=== PATIENT | male | born 1975 | race Caucasian/White ===

== ENCOUNTER 2018-02-25 18:19 | Emergency (ER) | payer SELFPAY ==
[~2018-02-25] VITALS: Ht 165.1 cm; Wt 61.2 kg
[2018-02-25 18:51] VITALS: BP 132/70
[2018-02-25] MEDS ORDERED: HYDR453.3 TP (19:27)
--- NOTE | 2018-02-25 19:28 | PHYS DOC ---
Past Medical History Past Medical History: Bipolar, Depression Past Surgical History: No Surgical History Additional Information: 06/12 PPD Alcohol Use: None Drug Use: None Adult General Chief Complaint Chief Complaint: SKIN PROBLEM HPI HPI 42-year-old male presents to emergency room for evaluation of "bugs crawling around under my skin". Patient is convinced he has scabies or an insect infestation on and under his skin. He was at a motel in the past week. He states that everybody he is talked to and described his symptoms to have told him that sounds like scabies. Patient does not currently have any rash but states he can see the bugs moving under and on his skin. Review of Systems Review of Systems Constitutional: Denies fever or chills [] : Denies dysuria or hematuria [] Musculoskeletal: Denies back pain or joint pain [] I Neurologic: Denies headache, focal weakness or sensory changes [] Endocrine: Denies polyuria or polydipsia [] All other systems were reviewed and found to be within normal limits, except as documented in this note. Allergies Allergies Allergies Coded Allergies Type Severity Reaction Last Updated Verified No Known Drug Allergies 02/25/18 No Physical Exam Physical Exam Constitutional: Well developed, well nourished, no acute distress, non-toxic appearance. [] Skin: Warm, dry, no erythema, no rash, NO VISIBLE INSECTS OR RASH ON EXTREMITIES Back: No tenderness, no CVA tenderness. [] Extremities: No tenderness, no cyanosis, no clubbing, ROM intact, no edema. [] Neurologic: Alert and oriented X 3, normal motor function, normal sensory function, no focal deficits noted. [] Psychologic: Affect normal, judgement normal, mood normal. [] Current Patient Data Vital Signs Vital Signs Date Time Temp Pulse Resp B/P (MAP) Pulse Ox O2 Delivery O2 Flow Rate FiO2 02/25/18 18:51 98.6 78 16 132/70 (90) 98 Room Air 98.6 EKG EKG [] Radiology/Procedures Radiology/Procedures [] Course & Med Decision Making Course & Med Decision Making During my examination, patient is pulling his socks off and pointing to LINT on his heels stating that this is bugs, active worms that are crawling on his feet. I explained to patient that this is lint from his socks, there were no active insects on his extremities. He then put a sock back on and points to a piece of green grass stating that that was a bug or insect. I do not see any evidence of scabies infestation on the skin. This appears to be a psychiatric issue. I explained to patient that I do not see any scabies infestation that I could treat the pruritus that he is experiencing. We could treat the symptoms with hydrocortisone cream. Patient does not like this idea and demands that he has scabies or "some other kind of insect living on my skin". [] Dragon Disclaimer Dragon Disclaimer This electronic medical record was generated, in whole or in part, using a voice recognition dictation system. Departure Departure Impression: Primary Impression: Generalized pruritus Disposition: HOME, SELF-CARE Condition: STABLE Referrals: NO PCP (PCP) Patient Instructions: Pruritus Scripts Hydrocortisone (HYDROCORTISONE) 453.6 Gm Cream..g. 1 FRANCES TP PRN BID, #30 GM 0 Refills Prov: ROHIT AUSTIN APRN 02/25/18 ROHIT AUSTIN APRN Feb 25, 2018 19:28
== END 2018-02-25 19:56 | disposition home or self-care (01) ==
LOC: ER 18:19
DX: L29.9 Pruritus, unspecified (principal)
CPT/HCPCS: 99282

== ENCOUNTER 2018-11-01 23:01 | Emergency (ER) | payer SELFPAY ==
[~2018-11-01] VITALS: Ht 165.1 cm; Wt 63.5 kg
[~2018-11-01 23:01] MED LIST: HYDR453.3 TP
[2018-11-01 23:43] LABS: BILIRUBIN,URINE NEGATIVE (NEG); CLARITY,URINE CLOUDY; COLOR,URINE YELLOW; NITRITE,URINE POSITIVE (NEG); PROTEIN,URINE NEGATIVE (NEG-TRACE)
[2018-11-01] MEDS ORDERED: ONDANSETRON PF 4 MG/2 ML VIAL. IV ONE (23:45)
[2018-11-01] MEDS ORDERED: KETOROLAC 30 MG/ML VIAL. IV ONE (23:45)
[2018-11-01] MEDS ORDERED: IV NORMAL SALINE 1000ML BAG 1,000 ML IV ONE (23:45)
[2018-11-01 23:51] LABS: RBC,URINE OCC /HPF (0-2)
[2018-11-01 23:52] LABS: BACTERIA,URINE MODERATE /HPF (0-FEW); SQUAMOUS EPITHELIAL CELL,UR OCC /LPF; WBC,URINE TNTC /HPF (0-4)
[2018-11-02] MEDS ORDERED: metroNIDAZOLE 500 MG TABLET PO ONE (00:30)
[2018-11-02] MEDS ORDERED: AZITHROMYCIN 250 MG TABLET. PO ONE (00:30)
[2018-11-02] MEDS ORDERED: cefTRIAXone IV Push 1 GM VIAL. IVP ONE (00:30)
[2018-11-02 00:45] LABS: BASO % 1 % (0-3); EOS % 0 % (0-3); HEMATOCRIT 42.7 % (39.0-53.0); HEMOGLOBIN 13.9 g/dL (13.0-17.5); LYMPH # 1.1 x10^3/uL (1.0-4.8); LYMPH % 21 % (24-48); MEAN CORPUSCULAR HEMOGLOBIN 27 pg (25-35); MEAN CORPUSCULAR HGB CONC 33 g/dL (31-37); MEAN CORPUSCULAR VOLUME 83 fL (79-100); MONO # 0.9 x10^3/uL (0.0-1.1); MONO % 18 % (0-9); NEUT % 60 % (31-73); PLATELET COUNT 214 x10^3/uL (140-400); RED BLOOD COUNT 5.12 x10^6/uL (4.30-5.70); RED CELL DISTRIBUTION WIDTH 14.1 % (11.5-14.5)
--- NOTE | 2018-11-02 00:47 | RAD ---
CT abdomen and pelvis without contrast. HISTORY: Flank pain CT abdomen and pelvis was done without contrast. Lung bases are clear. There is no effusion. A liver lesion is not identified. There is no calcified gallstone. Spleen and adrenal glands are normal. There is no mass or hydronephrosis in the kidneys. There is a punctate calculus in the lower pole of the left kidney. Bowel pattern is normal. Appendix is normal. There is no adenopathy. There is increased stool in the colon. IMPRESSION: 1. Punctate calculus lower pole left kidney. 2. No ureteral calculus noted. 3. Normal appendix. 4. Increased stool in the colon. PQRS Compliance Statement: One or more of the following individualized dose reduction techniques were utilized for this examination: 1. Automated exposure control 2. Adjustment of the mA and/or kV according to patient size 3. Use of iterative reconstruction technique Electronically signed by: Valentin Harris MD (11/02/2018 12:44 AM) [facility]
[2018-11-02 00:50] LABS: CALCIUM 9.1 mg/dL (8.5-10.1); CREATININE 0.9 mg/dL (0.7-1.3); POTASSIUM 3.6 mmol/L (3.5-5.1)
[2018-11-02 00:55] LABS: ALBUMIN 3.3 g/dL (3.4-5.0); ALBUMIN/GLOBULIN RATIO 0.8 (1.0-1.7); TOTAL BILIRUBIN 0.4 mg/dL (0.2-1.0); TOTAL PROTEIN 7.3 g/dL (6.4-8.2)
--- NOTE | 2018-11-02 00:55 | PHYS DOC ---
Past Medical History Past Medical History: Bipolar, Depression, Other Additional Past Medical Histor: Hep C (ANDREW CARLOS APRN) Past Surgical History: No Surgical History (ANDREW CARLOS APRN) Alcohol Use: None Drug Use: Marijuana (ANDREW CARLOS APRN) Adult General Chief Complaint Chief Complaint: FLANK PAIN HPI HPI Patient is a 42 year old male with history of bipolar, depression, who presents to the ED today complaining of 7 out of 10 bilateral flank pain with dark urine that began today. Patient denies any nausea vomiting. He is complaining of subjective fevers. Denies any previous history of kidney stones. He is in the ED with a significant other who states she has had kidney problems and could've given them to patient. She also states she has HPV and maybe patient has HPV too. (ANDREW CARLOS APRN) Review of Systems Review of Systems Constitutional: Reports subjective fevers Eyes: Denies change in visual acuity, redness, or eye pain [] HENT: Denies nasal congestion or sore throat [] Respiratory: Denies cough or shortness of breath [] Cardiovascular: No additional information not addressed in HPI [] GI: Denies abdominal pain, nausea, vomiting, bloody stools or diarrhea [] : Denies dysuria or hematuria [] Musculoskeletal: Reports flank pain Integument: Denies rash or skin lesions [] Neurologic: Denies headache, focal weakness or sensory changes [] All other systems were reviewed and found to be within normal limits, except as documented in this note. (ANDREW CARLOS APRN) Current Medications Current Medications Current Medications Medications (Trade) Dose Ordered Sig/Allen Start Time Stop Time Status Last Admin Dose Admin Azithromycin (Zithromax) 1,000 mg 1X ONCE 11/02/18 00:30 11/02/18 00:31 DC 11/02/18 01:15 1,000 MG Ceftriaxone Sodium (Rocephin) 1 gm 1X ONCE 11/02/18 00:30 11/02/18 00:31 DC 11/02/18 01:14 1 GM Ketorolac Tromethamine (Toradol 30mg Vial) 30 mg 1X ONCE 11/01/18 23:45 11/01/18 23:46 DC 11/02/18 00:06 30 MG Metronidazole (Flagyl) 2,000 mg 1X ONCE 11/02/18 00:30 11/02/18 00:31 DC 11/02/18 01:15 2,000 MG Ondansetron HCl (Zofran) 4 mg 1X ONCE 11/01/18 23:45 11/01/18 23:46 DC 11/02/18 00:05 4 MG Sodium Chloride 1,000 ml @ 1,000 mls/hr 1X ONCE 11/01/18 23:45 11/02/18 00:44 DC 11/02/18 00:06 1,000 MLS/HR Tamsulosin HCl (Flomax) 0.4 mg 1X ONCE 11/02/18 01:15 11/02/18 01:16 DC 11/02/18 01:15 0.4 MG (BENIGNO SHANKS MD) Allergies Allergies Allergies Coded Allergies Type Severity Reaction Last Updated Verified No Known Drug Allergies 02/25/18 No (BENIGNO SHANKS MD) Physical Exam Physical Exam Constitutional: Well developed, well nourished, no acute distress, non-toxic appearance. [] HENT: Normocephalic, atraumatic, bilateral external ears normal, oropharynx moist, no oral exudates, nose normal. [] Eyes: PERRLA, EOMI, conjunctiva normal, no discharge. [] Neck: Normal range of motion, no tenderness, supple, no stridor. [] Cardiovascular:Heart rate regular rhythm, no murmur [] Lungs & Thorax: Bilateral breath sounds clear to auscultation [] Abdomen: Bowel sounds normal, soft, no tenderness, no masses, no pulsatile masses. [] Skin: Warm, dry, no erythema, no rash. [] Back: No tenderness, mild bilateral CVA tenderness. [] Extremities: No tenderness, no cyanosis, no clubbing, ROM intact, no edema. [] Neurologic: Alert and oriented X 3, normal motor function, normal sensory function, no focal deficits noted. [] Psychologic: Patient curled up in a ball. Flat affect, significant other rubbing his back and face, significant other appears very overbearing (MUTUNGA,ANDREW [employer]) Current Patient Data Vital Signs Vital Signs Date Time Temp Pulse Resp B/P (MAP) Pulse Ox O2 Delivery O2 Flow Rate FiO2 11/02/18 02:00 98.7 71 18 141/77 (98) 98 Room Air 98.7 (BENIGNO SHANKS MD) Lab Values Laboratory Tests Test 11/01/18 23:31 11/02/18 00:30 Urine Color Yellow Urine Clarity Cloudy Urine pH 6.0 Urine Specific [place] 1.015 Urine Protein Negative mg/dL (NEG-TRACE) Urine Glucose (UA) Negative mg/dL (NEG) Urine Ketones (Stick) 40 mg/dL (NEG) Urine Blood Small (NEG) Urine Nitrite Positive (NEG) Urine Bilirubin Negative (NEG) Urine Urobilinogen Dipstick 1.0 mg/dL (0.2 mg/dL) Urine Leukocyte Esterase Large (NEG) Urine RBC Occ /HPF (0-2) Urine WBC Tntc /HPF (0-4) Urine Squamous Epithelial Cells Occ /LPF Urine Bacteria Moderate /HPF (0-FEW) Urine Opiates Screen Neg (NEG) Urine Methadone Screen Neg (NEG) Urine Barbiturates Neg (NEG) Urine Phencyclidine Screen Neg (NEG) Urine Amphetamine/Methamphetamine Pos (NEG) Urine Benzodiazepines Screen Neg (NEG) Urine Cocaine Screen Neg (NEG) Urine Cannabinoids Screen Pos (NEG) Urine Ethyl Alcohol Neg (NEG) White Blood Count 5.0 x10^3/uL (4.0-11.0) Red Blood Count 5.12 x10^6/uL (4.30-5.70) Hemoglobin 13.9 g/dL (13.0-17.5) Hematocrit 42.7 % (39.0-53.0) Mean Corpuscular Volume 83 fL (79-100) Mean Corpuscular Hemoglobin 27 pg (25-35) Mean Corpuscular Hemoglobin Concent 33 g/dL (31-37) Red Cell Distribution Width 14.1 % (11.5-14.5) Platelet Count 214 x10^3/uL (140-400) Neutrophils (%) (Auto) 60 % (31-73) Lymphocytes (%) (Auto) 21 % (24-48) L Monocytes (%) (Auto) 18 % (0-9) H Eosinophils (%) (Auto) 0 % (0-3) Basophils (%) (Auto) 1 % (0-3) Neutrophils # (Auto) 3.0 x10^3uL (1.8-7.7) Lymphocytes # (Auto) 1.1 x10^3/uL (1.0-4.8) Monocytes # (Auto) 0.9 x10^3/uL (0.0-1.1) Eosinophils # (Auto) 0.0 x10^3/uL (0.0-0.7) Basophils # (Auto) 0.0 x10^3/uL (0.0-0.2) Sodium Level 133 mmol/L (136-145) L Potassium Level 3.6 mmol/L (3.5-5.1) Chloride Level 99 mmol/L (98-107) Carbon Dioxide Level 24 mmol/L (21-32) Anion Gap 10 (6-14) Blood Urea Nitrogen 8 mg/dL (8-26) Creatinine 0.9 mg/dL (0.7-1.3) Estimated GFR (Cockcroft-Gault) 93.0 BUN/Creatinine Ratio 9 (6-20) Glucose Level 97 mg/dL (70-99) Calcium Level 9.1 mg/dL (8.5-10.1) Total Bilirubin 0.4 mg/dL (0.2-1.0) Aspartate Amino Transferase (AST) 25 U/L (15-37) Alanine Aminotransferase (ALT) 33 U/L (16-63) Alkaline Phosphatase 99 U/L (46-116) Total Protein 7.3 g/dL (6.4-8.2) Albumin 3.3 g/dL (3.4-5.0) L Albumin/Globulin Ratio 0.8 (1.0-1.7) L Lipase 69 U/L (73-393) L Ethyl Alcohol Level < 10 mg/dL (0-10) Laboratory Tests 11/02/18 00:30 Laboratory Tests 11/02/18 00:30 (BENIGNO SHANKS MD) EKG EKG [] (ANDREW CARLOS APRN) Radiology/Procedures Radiology/Procedures []PROCEDURE: CT ABDOMEN PELVIS WO CONTRAST CT abdomen and pelvis without contrast. HISTORY: Flank pain CT abdomen and pelvis was done without contrast. Lung bases are clear. There is no effusion. A liver lesion is not identified. There is no calcified gallstone. Spleen and adrenal glands are normal. There is no mass or hydronephrosis in the kidneys. There is a punctate calculus in the lower pole of the left kidney. Bowel pattern is normal. Appendix is normal. There is no adenopathy. There is increased stool in the colon. IMPRESSION: 1. Punctate calculus lower pole left kidney. 2. No ureteral calculus noted. 3. Normal appendix. 4. Increased stool in the colon. PQRS Compliance Statement: One or more of the following individualized dose reduction techniques were utilized for this examination: 1. Automated exposure control 2. Adjustment of the mA and/or kV according to patient size 3. Use of iterative reconstruction technique Electronically signed by: Valentin Harris MD (11/02/2018 12:44 AM) [facility] DICTATED and SIGNED BY: VALENTIN HARRIS MD DATE: 11/02/18 0044 (ANDREW CARLOS APRN) Course & Med Decision Making Course & Med Decision Making Pertinent Labs and Imaging studies reviewed. (See chart for details) This is a 42-year-old male patient presenting to the ED today with complaints of flank pain and dark urine. Symptoms began today. On arrival to the ED urine noted for small amount of blood, nitrites, large amount of leukocytes. Vitals are stable with temperature of 98.8. Blood pressures in the 120s over 70s. Patient's significant other states she has HPV as well as kidney issues and believes she could've transmitted this to patient. I went ahead and treated patient for STDs including being given Rocephin IV, Flagyl and azithromycin. Awaiting CBC and CMP. Care transferred to Dr. Shanks. (ANDREW CARLOS APRN) Course & Med Decision Making Assumed care of pt. CT neg for acute findings. He is nontoxic appearing, vitals stable, no signs of sepsis. UA likely 2/2 STI. Labs are reassuring. He has been treated for STIs. DC with cipro to cover for UTI. Follow up with PMD. Discussed all results and plan of care with pt who verbalizes understanding and agreement. (BENIGNO SHANKS MD) Dragon Disclaimer Dragon Disclaimer This electronic medical record was generated, in whole or in part, using a voice recognition dictation system. (ANDREW CARLOS APRN) Departure Departure Impression: Primary Impression: Kidney stone on left side Additional Impression: UTI (urinary tract infection) Disposition: HOME, SELF-CARE Condition: IMPROVED Referrals: NO PCP (PCP) Patient Instructions: Urinary Tract Infection Scripts Ciprofloxacin Hcl (CIPRO) 500 Mg Tablet 1 TAB PO BID for 7 Days, #14 TAB Prov: BENIGNO SHANKS MD 11/02/18 Problem Qualifiers ESTHERMargaritaANDREW APRN November 02, 2018 00:55 BENIGNO SHANKS MD November 02, 2018 01:35
[2018-11-02] MEDS ORDERED: TAMSULOSIN 0.4 MG CAP.ER.24H. PO ONE (01:15)
[2018-11-02] MEDS ORDERED: CIPR500T94 PO (01:36)
[2018-11-02 02:00] VITALS: BP 141/77
[2018-11-02 02:50] LABS: AMPHETAMINE/METHAMPHETAMINE POS (NEG); BARBITURATES NEG (NEG); BENZODIAZEPINES NEG (NEG); CANNABINOIDS POS (NEG); COCAINE NEG (NEG); METHADONE NEG (NEG); OPIATES NEG (NEG); PHENCYCLIDINE NEG (NEG)
== END 2018-11-02 02:20 | disposition home or self-care (01) ==
LOC: ER 23:01
DX: N20.0 Calculus of kidney (principal); F31.9 Bipolar disorder, unspecified; R10.9 Unspecified abdominal pain
CPT/HCPCS: 36415; 74176; 80053; 80307; 81001; 83690; 85025; 87086; 96374; 96375; 99285; G0480; J0696; J1885; J2405; J7030; Q0144; 87186